=== PATIENT | male | born 1980 | race Caucasian/White ===

== ENCOUNTER → 2016-10-29 | Outpatient (CLI) | payer BC ==
[~2016-10-29] MED LIST: LRT5 PO
--- NOTE | 2016-10-29 09:28 | DIAGNOSTIC IMAGING REPORT ---
RIGHT HAND MIN 3 VIEWS CLINICAL HISTORY: Right hand pain. Fracture. COMPARISON: 10/08/2016 DISCUSSION: There are healing angulated fractures of the fourth and fifth metacarpal necks. There is been no change in alignment. IMPRESSION: Healing angulated fractures of the fourth and fifth metacarpal necks, unchanged in alignment when compared with the preceding study Electronically signed by: Julian Landers M.D. 10/29/2016 9:26 AM
== END | disposition home or self-care (01) ==
LOC: C.RDSM 11:12
PROVIDERS: ATTEND Physical Medicine & Rehabilitation Sports Medicine
DX: R52 Pain, unspecified (principal)

== ENCOUNTER → 2017-06-10 | Outpatient (CLI) | payer BC ==
--- NOTE | 2017-06-10 15:59 | DIAGNOSTIC IMAGING REPORT ---
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 There are no acute fractures. There are subchondral cystic changes within the medial femoral condyle the left knee, similar to the preceding study. There are no erosive changes. There is minor medial joint compartment narrowing of the right knee. IMPRESSION: 1. No acute fractures 2. Minor degenerative change with mild medial joint compartment narrowing the right knee 3. 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 Stable nonaggressive 11 mm cystic lesion within the medial femoral condyle of the left knee Electronically signed by: Julian Landers M.D. 06/10/2017 3:58 PM Dictated Date/Time: 06/10/2017 3:54 PM
== END | disposition home or self-care (01) ==
LOC: C.RDSM 13:45
PROVIDERS: ATTEND Physician Assistant
DX: M25.561 Pain in right knee (principal); M25.562 Pain in left knee; M25.861 Other specified joint disorders, right knee; M25.862 Other specified joint disorders, left knee

== ENCOUNTER → 2017-06-20 | Outpatient (CLI) | payer BC ==
--- NOTE | 2017-06-20 14:01 | DIAGNOSTIC IMAGING REPORT ---
MRI OF THE RIGHT KNEE WITHOUT CONTRAST CLINICAL HISTORY: Right knee pain and swelling. Osteoarthritis. COMPARISON STUDY: MRI of the right knee June 01, 2014 and right knee radiographs June 10, 2017. TECHNIQUE: Utilizing a 1.5 Zeny magnet and dedicated coil, multiplanar, multiecho imaging of the right knee was performed without intravenous or intraarticular contrast. FINDINGS: Alignment of the right knee is anatomic. There is a moderate to large right knee joint effusion. Possible tiny loose body is noted within the lateral suprapatellar joint space. The cruciate and collateral ligaments are intact. This exam is mildly compromised by motion artifact. Slight irregularity of the free edge of the body of the medial meniscus is noted. There is also subtle signal abnormality within the free edge of the body of the lateral meniscus. The appearance of the menisci is similar to prior MRI. Note is made of focal high-grade chondrosis within the medial trochlear cartilage shown best on sagittal image 12 of 21. This cartilage defect measures 1.3 cm in craniocaudal extent. Otherwise, there is mild tricompartmental chondrosis of the right knee. No marrow edema or marrow replacement is present. Extensor mechanism is intact. IMPRESSION: 1. Intact cruciate and collateral ligaments. 2. High-grade cartilage defect measuring 1.3 cm within the medial trochlear cartilage. Otherwise, mild tricompartmental chondrosis within the right knee. 3. Moderate to large right knee joint effusion with possible tiny joint body. 4. Possible free edge tear of the body of the medial meniscus with focal signal abnormality within the body of the lateral meniscus which could reflect a subtle tear. No significant change in appearance of the menisci. Electronically signed by: Darío Barrientos M.D. 06/20/2017 2:00 PM Dictated Date/Time: 06/20/2017 1:44 PM
== END | disposition home or self-care (01) ==
LOC: C.MRI 12:10
PROVIDERS: ATTEND Physician Assistant
DX: M17.11 Unilateral primary osteoarthritis, right knee (principal); M25.461 Effusion, right knee

== ENCOUNTER → 2017-09-01 | Outpatient (CLI) | payer BC | END | disposition home or self-care (01) | LOC: C.RDSM 15:40 | PROVIDERS: ATTEND Physical Medicine & Rehabilitation Sports Medicine | DX: M25.561 Pain in right knee (principal) ==

== ENCOUNTER → 2018-06-08 | Outpatient (CLI) | payer BC ==
--- NOTE | 2018-06-08 09:38 | DIAGNOSTIC IMAGING REPORT ---
R KNEE 3 VIEWS CLINICAL HISTORY: B/L KNEE PAIN pain COMPARISON: 06/10/2017 DISCUSSION: Unchanged exam from the prior study. Small osteochondral defect medial femoral condyle unchanged. Small tiny avulsion superior lateral aspect right patella also unchanged. No new or interval finding. IMPRESSION: Mild degenerative and subchondral cystic change as discussed. Small avulsion superior right patella. No change from the prior study. The above report was generated using voice recognition software. It may contain grammatical, syntax or spelling errors. Electronically signed by: Yuniel Gaston M.D. 06/08/2018 9:36 AM Dictated Date/Time: 06/08/2018 9:33 AM
== END | disposition home or self-care (01) ==
LOC: C.RDSM 08:45
PROVIDERS: ATTEND Physician Assistant
DX: M25.562 Pain in left knee (principal); M25.561 Pain in right knee; M17.11 Unilateral primary osteoarthritis, right knee

== ENCOUNTER → 2018-06-17 | Outpatient (CLI) | payer BC ==
--- NOTE | 2018-06-17 17:37 | DIAGNOSTIC IMAGING REPORT ---
MRI OF THE RIGHT KNEE CLINICAL HISTORY: Right knee pain. Arthritis. COMPARISON STUDY: MRI of the right knee dated 06/20/2017. Radiographs of the right knee dated 06/08/2018. TECHNIQUE: MRI of the right knee was performed utilizing proton density, T1, and T2-weighted sequences in the axial, sagittal, coronal planes. IV contrast was not administered for this examination. FINDINGS: Menisci: There is an oblique tear with a radial component involving the body and posterior horn of the medial meniscus, best seen on coronal fat-sat images #21 and #22. No flipped fragment is identified. A tiny radial tear is again questioned involving the body of the lateral meniscus seen image #18. Lateral meniscus is otherwise intact. Ligaments: The anterior and posterior cruciate ligaments are intact. The medial and lateral collateral ligaments are within normal limits. Extensor mechanism: The extensor mechanism is intact. Hoffa's fat pad is normal in appearance. Articular cartilage and bone: A 13 mm nearly full thickness cartilaginous defect is again seen within the medial femoral trochlea, best visualized on sagittal image #13. There is no associated subchondral marrow edema. Only minimal degenerative thinning is seen throughout the remainder of the articular cartilage in all 3 compartments. There are tiny marginal osteophytes. Normal marrow signal is preserved of the visualized bony structures. Joint effusion: There is a moderate joint effusion. A 4 mm joint body is seen along the lateral joint space at the level of the tibial plateau on sagittal image #4. Soft tissues: Prepatellar soft tissue edema is noted. The musculature surrounding the knee joint is normal in bulk and signal intensity. IMPRESSION: 1. There has been progressive tearing involving the body and posterior horn of the medial meniscus as compared to 06/20/2017. 2. Question a tiny radial tear of the lateral meniscus. This is similar to previous. 3. A large cartilaginous defect is again seen along the medial femoral trochlea, similar to previous. 4. Moderate joint effusion and joint body as above. 5. The cruciate ligaments and the collateral ligament are preserved. 6. No marrow edema is identified. Electronically signed by: Brendon Turner M.D. 06/17/2018 5:35 PM Dictated Date/Time: 06/17/2018 5:26 PM
== END | disposition home or self-care (01) ==
LOC: C.MRI 16:36
PROVIDERS: ATTEND Physician Assistant
DX: M17.0 Bilateral primary osteoarthritis of knee (principal); S83.241A Other tear of medial meniscus, current injury, right knee, initial encounter; X58.XXXA Exposure to other specified factors, initial encounter; M24.10 Other articular cartilage disorders, unspecified site; M25.461 Effusion, right knee